=== PATIENT | male | born 1955 | race Caucasian/White ===

== ENCOUNTER 2021-03-14 23:19 | Inpatient (IN) | payer MEDICARE, OTHER ==
[~2021-03-14] VITALS: Ht 165.1 cm; Wt 45.4 kg
--- NOTE | 2021-03-14 23:30 | NUR ---
TO ER BED 14 BIBPA FOR MEDICAL CLEARANCE FROM [facility] FOR [facility] ADMISSION PT ON 5150 FOR DANGER TO SELF AND GRAVELY DISABLED. RECEIVED PT CONFUSED, CALM AND COOPERATIVE. DENIES SI/HI. NO ACUTE DISTRESS NOTED. RESP EVEN AND UNLABORED. ER MD AT BEDSIDE TO EVAL PT WITH ORDERS RECEIVED. WILL CARRY OUT ORDERS.
[2021-03-14 23:43] LABS: BASOPHILS % (AUTO) 0.2 % (0.0-2.0); HEMATOCRIT 40 % (39-51); HEMOGLOBIN 13.1 g/dL (13.5-17.5); LYMPHOCYTES % (AUTO) 26.4 % (20.0-44.0); MEAN CORPUSCULAR HGB CONC 33 g/dl (31.0-36.0); MEAN CORPUSCULAR VOLUME 84 fL (80-96); MONOCYTES # (AUTO) 0.6 K/uL (0.1-1.30); MONOCYTES % (AUTO) 8.4 % (2.0-12.0); NEUTROPHILS # (AUTO) 4.8 K/uL (1.8-8.9); PLATELET COUNT (AUTO) 184 K/uL (150-450); RED BLOOD CELL COUNT(AUTO) 4.78 MIL/uL (4.5-6.0); WHITE BLOOD COUNT (AUTO) 7.6 K/uL (4.3-11.0)
[2021-03-14 23:50] LABS: CARBON DIOXIDE 26 mmol/L (21-32); CHLORIDE 106 mmol/L (98-107); CREATININE 0.8 mg/dL (0.6-1.3); GLUCOSE 100 mg/dL (74-106); POTASSIUM 4.1 mmol/L (3.5-5.1); SODIUM SERUM 141 mmol/L (136-145); UREA NITROGEN, BLOOD 19 mg/dL (7-18)
[2021-03-14 23:56] LABS: ALANINE AMINOTRANSFERASE 16 U/L (12-78); ALBUMIN 3.2 g/dL (3.4-5.0); ALCOHOL, BLOOD < 3 mg/dL (0-0); ALKALINE PHOSPHATASE 81 U/L (46-116); ASPARTATE AMINOTRANSFERASE 18 U/L (15-37); BILIRUBIN,DIRECT 0.1 mg/dL (0.0-0.2); BILIRUBIN,TOTAL 0.2 mg/dL (0.2-1.0); TOTAL PROTEIN, SERUM 6.7 g/dL (6.4-8.2)
[2021-03-14 23:57] LABS: ACETAMINOPHEN 0 ug/ml (10-30)
[2021-03-15 02:10] LABS: BILIRUBIN,URINE Negative (NEGATIVE); COLOR,URINE YELLOW (YELLOW); LEUKOCYTE ESTERASE ,URINE Negative (NEGATIVE); NITRITE, URINE Negative (NEGATIVE); PH,URINE 6.5 (5.0-8.0); PROTEIN,URINE Negative (NEGATIVE); UGLUCOSE Negative (NEGATIVE); UROBILINOGEN,URINE 0.2 EU/dL (0.2)
[2021-03-15 02:36] LABS: BACTERIA,URINE None seen /HPF (None Seen); RBC,URINE 0-2 /HPF (0-2); SQUAMOUS EPITHELIAL CELL,UR Few /HPF (None Seen); WBC,URINE 0-2 /HPF (0-3)
--- NOTE | 2021-03-15 03:13 | NUR ---
REPORT CALLED TO MADHAV MARINO [facility]. WILL TRANSPORT PT TO ROOM 216-1
--- NOTE | 2021-03-15 03:30 | NUR ---
ADMITTED THIS 65/O MALE PATIENT ADMIT FROM [facility]. ADMITTED TO GPS ON 5150 HOLD, PER HOLD GRAVELY DISABLE AGGRESSIVE BEHAVIOR, REFUSING TO STAFF UPON FACE TO FACE ASSESSMENT PATIENT IS A&O X , 2 VERY CONFUSED,DISHEVEL ,EASILY DISORGANIZED, VERY POOR HYGINE , MALODORS , REFUSED TO TAKE SHOWER DENIES SI /HI AT THIS TIME, PT. IS POOR HISTORIAN, POOR INSIGHT ,POOR JUDGEMENT , PT. REFUSED TO SIGNS ADMISSION CONSENT PAPERS , DUE TO MENTAL STATUS , BOTH MD AWARE AND NOTIFIED OF THE ADMISSION, BELONGINGS CONTRABAND WERE DONE , NURSING ASSESSMENT DONE ,PT. RIGHTS DISCUSS BY MEDIC TECHNICIAN , PROVIDE THE PT. WITH HANDBOOK, AND MEDICATIONS GUIDE, ENVIRONMENTAL SAFETY CHECK DONE, ENCOURAGED PT. VERBALIZED ANY FEELING CONCERN TO STAFF, ORIENT TO UNIT POLICY, NO ACUTE DISTRESS NOTED,VITAL SIGNS WNL ,DENIES ANY PAIN AT THIS TIME,WILL CONTINUE TO MONITOR FOR Q15 SAFETY AND BEHAVIOR.
[2021-03-15] MEDS ORDERED: LORAZEPAM 0.5 MG TABLET PO PRN (04:00)
[2021-03-15] MEDS ORDERED: MAGNESIUM HYDROXIDE 30 ML UDC PO PRN (04:00)
[2021-03-15] MEDS ORDERED: MAG HYDROX/AL HYDROX/SIMETH 30 ML UDC PO PRN (04:00)
[2021-03-15] MEDS ORDERED: ACETAMINOPHEN 325 MG TABLET PO PRN (04:00)
[2021-03-15] MEDS ORDERED: BLOOD SUGAR DIAGNOSTIC 1 EACH STRIP IN ONE (04:00)
[2021-03-15] MEDS ORDERED: TEMAZEPAM 7.5 MG CAPSULE PO PRN (04:00)
[2021-03-15 04:12] VITALS: BP 139/75
[2021-03-15] MEDS ORDERED: VOLTAREN GEL TOP (05:44)
[2021-03-15] MEDS ORDERED: LACT10SO3 PO (05:44)
[2021-03-15] MEDS ORDERED: BACL10TA PO (05:44)
[2021-03-15] MEDS ORDERED: TRAM100T39 PO (05:44)
[2021-03-15 08:00] VITALS: BP 121/73
--- NOTE | 2021-03-15 10:50 | NUR ---
Initial Discharge Plan: Pt came [facility] ([address] [place] [address]; [phone]). Pt plans to return to this facility at the time of D/C. SW will work with the pt and the MD regarding appropriate discharge planning. SW will form a safe and proper discharge plan.
--- NOTE | 2021-03-15 11:46 | NUR ---
RN-CO: DR PRYOR WAS CALLED TO [facility].
[2021-03-15] MEDS ORDERED: HOME MED MISCELLANEOUS XX SCH (15:00)
--- NOTE | 2021-03-15 15:10 | NUR ---
RN-CO: DR GUEVARA MADE AWARE OF THIS ADMISSION.
[2021-03-15 16:09] VITALS: BP 135/79
[2021-03-15] MEDS: LACTULOSE 10 G/15 ML UDC (PYXIS) PO SCH ×2 (16:21→16:25)
[2021-03-15 19:52] VITALS: BP 127/71
[2021-03-15] MEDS: TRAMADOL HCL 50 MG TABLET PO PRN (21:52)
[2021-03-15] MEDS: risperiDONE 1 MG TABLET PO SCH (22:18)
--- NOTE | 2021-03-15 22:21 | NUR ---
GPS RN NOTES PATIENT C/O GENERALIZED BODY. TRAMADOL 100MG GIVEN PO PRN ORDERED AT 2151.
--- NOTE | 2021-03-15 22:24 | NUR ---
GPS RN NOTES: RISPERIDONE 0.5MG ADMINISTERED PO ORDERED. 0.5MG PARTIAL DOSE WASTED PER MD ORDER.
--- NOTE | 2021-03-16 05:23 | NUR ---
RN NOTE PATIENT REFUSED AM [facility] DESPITE OF RISKS & BENEFIT EXPLANATIONS.
[2021-03-16 08:00] VITALS: BP 116/67
[2021-03-16] MEDS: risperiDONE 1 MG TABLET PO SCH ×2 (09:15→21:25)
[2021-03-16] MEDS: LACTULOSE 10 G/15 ML UDC (PYXIS) PO SCH ×2 (11:01→17:54)
[2021-03-16] MEDS: TRAMADOL HCL 50 MG TABLET PO PRN ×2 (11:01→21:26)
[2021-03-16 11:16] LABS: CHOLESTEROL 188 mg/dL (<200); HDL CHOLESTEROL 68 mg/dL (40-60); LDL 104 mg/dL (0-99); TRIGLYCERIDES 56 mg/dL (30-150)
[2021-03-16 11:18] LABS: ALBUMIN 3.4 g/dL (3.4-5.0); BILIRUBIN,TOTAL 0.6 mg/dL (0.2-1.0); CALCIUM, SERUM 8.7 mg/dL (8.5-10.1); POTASSIUM 4.2 mmol/L (3.5-5.1); TOTAL PROTEIN, SERUM 7.2 g/dL (6.4-8.2)
[2021-03-16 16:00] VITALS: BP 117/72
[2021-03-16 20:19] VITALS: BP 146/83
--- NOTE | 2021-03-16 21:33 | NUR ---
GPS RN NOTES PATIENT C/O LOWER BACK PAIN. RATES PAIN LEVEL 8/10. TRAMADOL 100MG GIVEN PO PRN ORDERED AT 2125.
--- NOTE | 2021-03-16 21:35 | NUR ---
GPS RN NOTES: RISPERIDONE 0.5MG ADMINISTERED PO ORDERED. 0.5MG PARTIAL DOSE WASTED PER MD ORDER.
[2021-03-17 08:00] VITALS: BP 122/70
[2021-03-17] MEDS: LACTULOSE 10 G/15 ML UDC (PYXIS) PO SCH ×2 (08:18→16:17)
[2021-03-17] MEDS: risperiDONE 1 MG TABLET PO SCH ×2 (09:18→21:53)
[2021-03-17 16:00] VITALS: BP 137/83
[2021-03-17] MEDS: ENSURE ENLIVE 237 ML LIQUID (VANILLA) PO SCH (16:17)
[2021-03-17 21:03] VITALS: BP 133/74
[2021-03-18 08:00] VITALS: BP 130/77
[2021-03-18] MEDS: ENSURE ENLIVE 237 ML LIQUID (VANILLA) PO SCH ×2 (08:48→16:48)
[2021-03-18] MEDS: LACTULOSE 10 G/15 ML UDC (PYXIS) PO SCH ×2 (08:49→16:49)
[2021-03-18] MEDS: risperiDONE 1 MG TABLET PO SCH ×2 (08:50→22:13)
[2021-03-18 16:00] VITALS: BP 126/76
[2021-03-18 20:24] VITALS: BP 123/62
--- NOTE | 2021-03-19 06:37 | NUR ---
GPS RN NOTES: PATIENT IS CURRENTLY SLEEPING COMFORTABLY IN BED. PATIENT SLEPT 9HR THIS SHIFT. PATIENT REFUSED WEEKLY SKIN ASSESSMENT THIS SHIFT. NO S/S OF DISTRESS. RESPIRATION EVEN AND UNLABORED WITH EQUAL RISE AND FALL OF THE CHEST, ON ROOM AIR. BED IN LOWEST POSITION AND LOCKED, SIDE RAILS UP X2. CALL CASIANO WITHIN REACH. ALL PATIENT CARE NEEDS HAVE BEEN MET ANTICIPATED. WILL CONTINUE TO MONITOR AND ENDORSE TO AM SHIFT.
[2021-03-19 08:29] VITALS: BP 138/75
[2021-03-19] MEDS: LACTULOSE 10 G/15 ML UDC (PYXIS) PO SCH ×2 (08:29→17:19)
[2021-03-19] MEDS: ENSURE ENLIVE 237 ML LIQUID (VANILLA) PO SCH ×2 (08:30→17:20)
[2021-03-19] MEDS: risperiDONE 1 MG TABLET PO SCH ×2 (10:17→21:31)
[2021-03-19 16:00] VITALS: BP 115/59
[2021-03-19] MEDS: TRAMADOL HCL 50 MG TABLET PO PRN (16:16)
--- NOTE | 2021-03-19 16:16 | NUR ---
RN NOTE: PAIN PT C/O 02/17 LOWER BACK PAIN. MEDICATED WITH ULTRAM PO PRN
[2021-03-19 20:00] VITALS: BP 111/63
[2021-03-20 08:00] VITALS: BP 128/67
[2021-03-20] MEDS: LACTULOSE 10 G/15 ML UDC (PYXIS) PO SCH ×2 (09:33→17:00)
[2021-03-20] MEDS: risperiDONE 1 MG TABLET PO SCH ×2 (09:33→21:15)
[2021-03-20] MEDS: ENSURE ENLIVE 237 ML LIQUID (VANILLA) PO SCH ×2 (09:34→17:00)
--- NOTE | 2021-03-20 10:30 | NUR ---
Probable cause hearing: Pt.'s 5250 hold was upheld on the grounds of gravely disabled.
[2021-03-20 16:33] VITALS: BP 116/65
[2021-03-20] MEDS: TRAMADOL HCL 50 MG TABLET PO PRN (19:35)
--- NOTE | 2021-03-20 19:36 | NUR ---
GPS RN NOTES: PAIN PT. C/O BACK PAIN 03/20 , TRAMADOL 100 MG/2 TAB GIVEN PER PT. REQUEST . WILL CONTINUE TO MONITOR.
[2021-03-20 20:00] VITALS: BP 125/75
[2021-03-20] MEDS: ATORVASTATIN 10 MG TABLET PO SCH (21:15)
[2021-03-21 08:00] VITALS: BP 123/78
[2021-03-21] MEDS: LACTULOSE 10 G/15 ML UDC (PYXIS) PO SCH ×2 (08:23→16:00)
[2021-03-21] MEDS: ENSURE ENLIVE 237 ML LIQUID (VANILLA) PO SCH ×2 (08:26→16:01)
[2021-03-21] MEDS: risperiDONE 1 MG TABLET PO SCH ×2 (09:27→22:07)
[2021-03-21] MEDS: TRAMADOL HCL 50 MG TABLET PO PRN (16:17)
[2021-03-21] MEDS: ATORVASTATIN 10 MG TABLET PO SCH (22:07)
[2021-03-22 08:03] VITALS: BP 132/81
[2021-03-22] MEDS: LACTULOSE 10 G/15 ML UDC (PYXIS) PO SCH ×2 (08:12→16:12)
[2021-03-22] MEDS: ENSURE ENLIVE 237 ML LIQUID (VANILLA) PO SCH ×4 (08:13→16:15)
[2021-03-22] MEDS: risperiDONE 1 MG TABLET PO SCH (10:22)
[2021-03-22] MEDS: TRAMADOL HCL 50 MG TABLET PO PRN ×2 (11:33→21:36)
[2021-03-22 16:00] VITALS: BP 124/67
[2021-03-22] MEDS: BACLOFEN (10 MG) 10 MG TABLET PO PRN (16:13)
[2021-03-22] MEDS: risperiDONE 0.25 MG TABLET PO SCH (18:22)
[2021-03-22 19:45] VITALS: BP 110/61
[2021-03-22] MEDS: ATORVASTATIN 10 MG TABLET PO SCH (21:35)
--- NOTE | 2021-03-22 21:37 | NUR ---
GPS RN NOTES: PATIENT C/O LOWER BACK PAIN. RATES PAIN LEVEL 8/10. TRAMADOL 100MG TAB GIVEN PO PRN ORDERED AT 6. WILL CONTINUE TO MONITOR.
[2021-03-23 08:00] VITALS: BP 126/74
[2021-03-23] MEDS: LACTULOSE 10 G/15 ML UDC (PYXIS) PO SCH ×2 (08:27→16:33)
[2021-03-23] MEDS: risperiDONE 0.25 MG TABLET PO SCH ×2 (08:28→16:33)
[2021-03-23] MEDS: ENSURE ENLIVE 237 ML LIQUID (VANILLA) PO SCH ×3 (08:39→17:41)
--- NOTE | 2021-03-23 11:54 | NUR ---
D/C Planning: Pt. to be discharged back to [facility] ([address], [place] [address]; [phone]) on March 26. ARNULFO notified Negin GONZALES [phone] who is agreeable and requested clinicals. ARNULFO faxed clinicals to ATTN: Negin FAX: [phone]. ARNULFO will be available as needed.
[2021-03-23 16:00] VITALS: BP 132/76
[2021-03-23 19:51] VITALS: BP 113/70
[2021-03-23] MEDS: ATORVASTATIN 10 MG TABLET PO SCH (21:20)
[2021-03-24 08:00] VITALS: BP 117/68
[2021-03-24] MEDS: LACTULOSE 10 G/15 ML UDC (PYXIS) PO SCH ×2 (08:04→16:17)
[2021-03-24] MEDS: risperiDONE 0.25 MG TABLET PO SCH ×2 (08:04→16:17)
[2021-03-24] MEDS: ENSURE ENLIVE 237 ML LIQUID (VANILLA) PO SCH ×2 (08:22→17:18)
[2021-03-24] MEDS: TRAMADOL HCL 50 MG TABLET PO PRN (10:36)
[2021-03-24 16:00] VITALS: BP 104/56
[2021-03-24 19:38] VITALS: BP 114/64
[2021-03-24] MEDS: ATORVASTATIN 10 MG TABLET PO SCH (21:12)
[2021-03-25 07:46] LABS: CREATININE 0.6 mg/dL (0.6-1.3); POTASSIUM 4.5 mmol/L (3.5-5.1)
[2021-03-25 07:52] LABS: CALCIUM, SERUM 8.7 mg/dL (8.5-10.1)
[2021-03-25 08:07] VITALS: BP 134/74
[2021-03-25] MEDS: risperiDONE 0.25 MG TABLET PO SCH ×2 (08:32→16:55)
[2021-03-25] MEDS: LACTULOSE 10 G/15 ML UDC (PYXIS) PO SCH ×2 (08:32→16:55)
[2021-03-25] MEDS: ENSURE ENLIVE 237 ML LIQUID (VANILLA) PO SCH ×2 (08:34→16:57)
[2021-03-25] MEDS: BACLOFEN (10 MG) 10 MG TABLET PO PRN (08:37)
[2021-03-25 16:00] VITALS: BP 127/66
[2021-03-25] MEDS: TRAMADOL HCL 50 MG TABLET PO PRN (16:55)
[2021-03-25 20:00] VITALS: BP 119/69
[2021-03-25] MEDS: ATORVASTATIN 10 MG TABLET PO SCH (22:17)
[2021-03-26] MEDS: TRAMADOL HCL 50 MG TABLET PO PRN ×2 (01:43→16:12)
--- NOTE | 2021-03-26 01:45 | NUR ---
gps rn note patient c/o 10/10 pain. Given Ultram prn. will reassess.
[2021-03-26] MEDS: BACLOFEN (10 MG) 10 MG TABLET PO PRN (07:35)
[2021-03-26 08:00] VITALS: BP 119/73
[2021-03-26] MEDS: LACTULOSE 10 G/15 ML UDC (PYXIS) PO SCH ×2 (08:08→16:07)
[2021-03-26] MEDS: risperiDONE 0.25 MG TABLET PO SCH ×2 (08:09→16:08)
[2021-03-26] MEDS: ENSURE ENLIVE 237 ML LIQUID (VANILLA) PO SCH ×2 (08:09→16:44)
--- NOTE | 2021-03-26 10:10 | NUR ---
D/C Planning: ARNULFO faxed COVID test result to [facility] to ATTN: Negin FAX: [phone] for D/C today.
[2021-03-26 16:00] VITALS: BP 100/62
--- NOTE | 2021-03-26 16:02 | NUR ---
Discharge Plan: Pt. will be discharged to prior living arrangement at [facility] ([address] [place] [address]; [phone]) on Friday, March 26, 2021. Pt. will be transported via [facility]. Currently, pt. appears to be in a euthymic mood. Pt. is calm and cooperative. Pt. denies SI/HI and denies hallucinations. Pt. will be under the care of psychiatrist: Reyes Michelle MD and pipe smoking machine offbearer: Festus Ramey MD at [facility] (Assisted Living). Pt was also provided with the address and phone number of [facility] located at [id number] [place] [id number]; .
--- NOTE | 2021-03-26 16:13 | NUR ---
RN NOTES PT C/O LOWER BACK PAIN, 8/10 SCALE. PRN TRAMADOL 100MG PO GIVEN AT 1612. WILL CONTINUE TO MONITOR AND REASSESS PT.
--- NOTE | 2021-03-26 16:55 | NUR ---
GPS RN DISCHARGED NOTES PT DISCHARGED TO [facility] IN STABLE CONDITION. CALLED AND REPORT GIVEN TO BREEZY MULLIGAN. PT IS A/O X4. ABLE TO MAKE NEEDS KNOWN, DENIES SI AND HI. ALL NEEDS AND CARE ATTENDED WELL. PT IS AMBULATORY. V/S TAKEN, STABLE AND RECORDED. NO SKIN ISSUES NOTED. ALL BELONGINGS ACCOUNTED FOR AND SIGNED FORM. HEALTH TEACHINGS GIVEN TO PATIENT AND VERBALIZED UNDERSTANDING. EXIT CARE FOLDER HANDED TO EMT'S. PT LEFT UNIT AT 1650 VIA GURNEY WITH 2 EMT'S FROM [facility].
== END 2021-03-26 16:50 | DRG 885 ==
LOC: ER 23:23 → GPS 03-15 03:09
PROVIDERS: ADMIT Psychiatry & Neurology Psychiatry; ATTEND Nurse Practitioner Acute Care
DX: F29 Unspecified psychosis not due to a substance or known physiological condition (principal); E43 Unspecified severe protein-calorie malnutrition; Z68.1 Body mass index [BMI] 19.9 or less, adult; R64 Cachexia; R45.851 Suicidal ideations; F41.9 Anxiety disorder, unspecified; Z20.822 Contact with and (suspected) exposure to COVID-19; J44.9 Chronic obstructive pulmonary disease, unspecified; G89.29 Other chronic pain; F32.9 Major depressive disorder, single episode, unspecified; F20.9 Schizophrenia, unspecified; E78.5 Hyperlipidemia, unspecified; Z88.9 Allergy status to unspecified drugs, medicaments and biological substances; Z73.6 Limitation of activities due to disability; R79.89 Other specified abnormal findings of blood chemistry
CPT/HCPCS: 36415; 80048-TC; 80053-TC; 80061-TC; 80076-TC; 81001; 85025-TC; 87081-TC; 97112-TC; 97116-TC; 97530-TC; C9803; G0480